=== PATIENT | female | born 1960 | race Caucasian/White ===

== ENCOUNTER 2016-06-14 07:22 | Day surgery (SDC) | payer BC ==
--- NOTE | ~2016-06-14 | EGD ---
EGD REPORT [facility] [address] [place] [address] NAME: STEVEN ZAVALETA : 56 STATUS : REG [facility]#: [id number] AGE: 55 ADM/REG DATE : 06/14/16 MR#: [id number] REPORT SERV DATE: 06/14/16 DICTATED BY: TAL GUZMAN DATE: 06/14/16 REPORT STATUS : Draft [facility]ANS[facility]: [facility] DATE: 06/14/16 [facility] Patient Name: Steven Zavaleta Date of : 1960 Attending MD: KARLENE GUZMAN MD Procedure Date No Time: 06/14/2016 Procedure: Colonoscopy Indications: High risk colon cancer surveillance: Personal history of colonic polyps, Last colonoscopy: 2011 Referring MD: SUSAN ALARCON Medicines: See the Anesthesia note for documentation of the administered medications Complications: No immediate complications. Estimated blood loss: None. Procedure: Pre-Anesthesia Assessment: - ASA Grade Assessment: II - A patient with mild systemic disease. - Prior to the procedure, a History and Physical was performed, and patient medications and allergies were reviewed. The patient's tolerance of previous anesthesia was also reviewed. The risks and benefits of the procedure and the sedation options and risks were discussed with the patient. All questions were answered, and informed consent was obtained. Prior Anticoagulants: The patient has taken no previous anticoagulant or antiplatelet agents. After reviewing the risks and benefits, the patient was deemed in satisfactory condition to undergo the procedure. After I obtained informed consent, the scope was passed under direct vision. Throughout the procedure, the patient's blood pressure, pulse, and oxygen saturations were monitored continuously. The PCF [id number] was introduced through the anus and advanced to the terminal ileum. The colonoscopy was performed without difficulty. The ileocecal valve, appendiceal orifice, terminal ileum and rectum were photographed. The entire colon was examined. The colonoscopy was performed without difficulty. The patient tolerated the procedure well. The quality of the bowel preparation was adequate. Findings: The perianal and digital rectal examinations were normal. The terminal ileum appeared normal. Three sessile polyps were found in the sigmoid colon. The polyps were 4 mm in size. These polyps were removed with a cold snare. Resection and retrieval were complete. EGD REPORT [place] [id number] [place]. [address] NAME: STEVEN ZAVALETA : [birth year] STATUS : REG [facility]#: [id number] AGE: 55 ADM/REG DATE : 06/14/16 MR#: [id number] REPORT SERV DATE: 06/14/16 DICTATED BY: TAL GUZMAN DATE: 06/14/16 REPORT STATUS : Draft TRANSCRIBED BY: [employer] DATE: 06/14/16 Multiple small and large-mouthed diverticula were found in the entire colon. Non-bleeding internal hemorrhoids were found during retroflexion and were Grade I (internal hemorrhoids that do not prolapse). No other significant abnormalities were identified in a careful examination of the remainder of the colon. Impression: - The examined portion of the ileum was normal. - Three 4 mm polyps in the sigmoid colon. Resected and retrieved. - Diverticulosis in the entire examined colon. - Non-bleeding internal hemorrhoids. Recommendation: - Patient has a contact number available for emergencies. The signs and symptoms of potential delayed complications were discussed with the patient. Return to normal activities tomorrow. Written discharge instructions were provided to the patient. - High fiber diet indefinitely. - Discharge patient to home. - Continue present medications. - Await pathology results. - Repeat colonoscopy in 5 years for surveillance. Procedure Code(s): --- Professional --- 98174, Colonoscopy, flexible, proximal to splenic flexure; with removal of tumor(s), polyp(s), or other lesion(s) by snare technique Diagnosis Code(s): --- Professional --- K64.0, First degree hemorrhoids K57.30, Diverticulosis of large intestine without perforation or abscess without bleeding D12.5, Benign neoplasm of sigmoid colon Z86.010, Personal history of colonic polyps CPT copyright 2013 [employer]. All rights reserved. The codes documented in this report are preliminary and upon purchasing expeditor review may be revised to meet current compliance requirements. KARLENE GUZMAN MD 06/14/2016 9:06 AM This report has been signed electronically. Number of Addenda: 0 EGD REPORT [facility] [address] [address] NAME: STEVEN ZAVALETA : [birth year] STATUS : REG [facility] PAT#: [id number] AGE: 55 ADM/REG DATE : 06/14/16 MR#: [id number] REPORT SERV DATE: 06/14/16 DICTATED BY: TAL GUZMAN DATE: 06/14/16 REPORT STATUS : Draft TRANSCRIBED BY: [employer] DATE: 06/14/16 Note Initiated On: 06/14/2016 8:39 AM Scope Withdrawal Time 0 hours 9 minutes 46 seconds [address] [id number]
[~2016-06-14 07:22] MED LIST: ALLEGRA180 PO; RED YEAS1 PO; SPIRO50 PO
== END 2016-06-14 23:59 | disposition home or self-care (01) ==
LOC: DMU 07:22
PROVIDERS: Internal Medicine Gastroenterology
PROC: 0DBN8ZX Excision of Sigmoid Colon, Via Natural or Artificial Opening Endoscopic, Diagnostic (ICD-10-PCS; principal; 2016-06-14 09:00)
DX: K63.5 Polyp of colon (principal); K64.0 First degree hemorrhoids; K57.30 Diverticulosis of large intestine without perforation or abscess without bleeding; E66.01 Morbid (severe) obesity due to excess calories; G47.33 Obstructive sleep apnea (adult) (pediatric); Z86.010 Personal history of colon polyps; Z90.710 Acquired absence of both cervix and uterus; Z98.890 Other specified postprocedural states
CPT/HCPCS: 88305